=== PATIENT | male | born 1945 | race Caucasian/White ===

== ENCOUNTER → 2023-05-20 11:19 | Outpatient (CLI) | payer OTHER, SELFPAY ==
[2023-05-20 12:19] LABS: Ammonia (NH3) 41 umol/L (9-30)
== END ==
PROVIDERS: Family Provider Physician Assistant; PCP Physician Assistant; Referring Provider Family Medicine; Visit Provider Family Medicine
DX: K70.30 Alcoholic cirrhosis of liver without ascites (principal)
CPT/HCPCS: 36415; 82140